=== PATIENT | female | born 1965 | race Caucasian/White ===

== ENCOUNTER 2019-05-26 15:55 | Emergency (ER) | payer OTHER ==
[~2019-05-26] VITALS: Ht 172.7 cm; Wt 60.2 kg
[2019-05-26 16:16] VITALS: BP 142/69; TEMP 97.7
[2019-05-26] MEDS ORDERED: ALEVE 220MG220 MG PO (16:32)
[2019-05-26 17:17] VITALS: PULSE 49
== END 2019-05-26 17:20 | disposition home or self-care (01) ==
LOC: COL.ER 15:55
DX: T23.502A Corrosion of first degree of left hand, unspecified site, initial encounter (principal); T23.501A Corrosion of first degree of right hand, unspecified site, initial encounter; Z90.710 Acquired absence of both cervix and uterus; T31.0 Burns involving less than 10% of body surface